=== PATIENT | female | born 1995 | race Caucasian/White ===

== ENCOUNTER 2018-03-18 16:45 | Emergency (ER) | payer MEDICAID ==
[2018-03-18 17:18] LABS: APPEARANCE,URINE Clear; BILIRUBIN,URINE 1+ (NEGATIVE); COLOR,URINE Yellow; GLUCOSE, URINE (UA) NEGATIVE (NEGATIVE); KETONES,URINE 1+ (NEGATIVE); LEUKOCYTE ESTERASE ,URINE NEGATIVE (NEGATIVE); NITRATE,URINE NEGATIVE (NEGATIVE); OCCULT BLOOD,URINE TRACE INTACT (NEG-TRACE); PH,URINE 5.5; UROBILINOGEN,URINE 0.2 (0.2-1.0 EU)
[2018-03-18 17:46] LABS: ICTOTEST,URINE NEGATIVE (NEGATIVE); RBC,URINE 0-2 (0-3AV/HPF)
[2018-03-18 17:47] LABS: BACTERIA 2+ (< 1+); CRYSTALS NEGATIVE (0-3 AVE/HPF)
[2018-03-18 18:07] VITALS: BP 113/77; PULSE 97; RESP 18; TEMP 97.6; O2SAT 95
== END 2018-03-18 18:34 | disposition home or self-care (01) | DRG 696 ==
LOC: ED 16:45
DX: R35.0 Frequency of micturition (principal)
CPT/HCPCS: 81001; 82962; 87088; 99282